=== PATIENT | female | born 1955 | race Caucasian/White ===

== ENCOUNTER 2017-02-04 15:08 | Outpatient (CLI) | payer OTHER ==
[2017-02-04 15:26] LABS: BASOPHILS % 0.6 (0.0-1.5); MEAN CORPUSCULAR HEMOGLOBIN 21.8 pg (28.0-34.0); MEAN CORPUSCULAR VOLUME 74.2 fl (80.0-100.0); MONOCYTES % 7.4 % (0.0-11.0); NEUTROPHILS # 2.2 # k/uL (1.4-7.7)
[2017-02-04 15:50] LABS: eGFR (African) > 60; eGFR (Non-African) > 60
== END 2017-02-04 15:10 ==
LOC: LAB 15:08
PROVIDERS: ATTEND Internal Medicine Gastroenterology
DX: K86.1 Other chronic pancreatitis (principal)
CPT/HCPCS: 36415; 80053; 85025

== ENCOUNTER 2017-02-25 15:22 | Outpatient (CLI) | payer OTHER ==
[2017-02-25 15:54] LABS: EOSINOPHILS % 10.2 % (0.0-6.8); MEAN CORPUSCULAR HEMOGLOBIN 23.9 pg (28.0-34.0); MEAN CORPUSCULAR VOLUME 78.8 fl (80.0-100.0); MONOCYTES % 7.8 % (0.0-11.0); NEUTROPHILS # 2.2 # k/uL (1.4-7.7)
[2017-02-26 03:11] LABS: SERUM IRON 156 ug/dL (37-145)
== END 2017-02-25 15:23 ==
LOC: LAB 15:22
PROVIDERS: ATTEND Internal Medicine Gastroenterology
DX: D64.9 Anemia, unspecified (principal)
CPT/HCPCS: 36415; 83540; 83550; 85025

== ENCOUNTER 2018-05-21 11:27 | Outpatient (CLI) | payer OTHER ==
[2018-05-21 11:56] LABS: MEAN CORPUSCULAR HEMOGLOBIN 30.4 pg (28.0-34.0); MONOCYTES % 5.3 % (0.0-11.0)
[2018-05-21 11:57] LABS: BASOPHILS % 0.6 (0.0-1.5); NEUTROPHILS # 2.4 # k/uL (1.4-7.7)
[2018-05-21 12:06] LABS: eGFR (Non-African) > 60
== END 2018-05-21 11:30 ==
LOC: LAB 11:27
PROVIDERS: ATTEND Psychiatry & Neurology Psychiatry
DX: F33.2 Major depressive disorder, recurrent severe without psychotic features (principal); R53.83 Other fatigue; Z86.2 Personal history of diseases of the blood and blood-forming organs and certain disorders involving the immune mechanism
CPT/HCPCS: 36415; 80053; 82306; 82607; 82728; 82746; 83540; 83550; 84439; 84443; 84481; 85025

== ENCOUNTER 2019-01-25 11:36 | Outpatient (CLI) | payer OTHER ==
[2019-01-25 12:05] LABS: BASOPHILS % 0.5 % (0.0-1.5); NEUTROPHILS # 2.6 # k/uL (1.4-7.7)
[2019-01-25 12:13] LABS: eGFR (Non-African) > 60
== END 2019-01-25 11:41 ==
LOC: LAB 11:36
PROVIDERS: ATTEND Internal Medicine Gastroenterology
DX: D64.9 Anemia, unspecified (principal)
CPT/HCPCS: 36415; 80053; 85025